=== PATIENT | male | born 1990 | race Caucasian/White ===

== ENCOUNTER 2017-06-08 09:09 | Emergency (ER) | payer BC ==
[~2017-06-08] VITALS: Ht 170.2 cm; Wt 80.8 kg
[2017-06-08 09:12] VITALS: BP 151/76; PULSE 68; RESP 16; TEMP 98.3; O2SAT 96
--- NOTE | 2017-06-08 09:45 | PD ---
HPI Chief Complaint: Neuro Symptoms/ Deficits Time Seen by Provider: 09:17 Travel History International Travel<30 days: No Contact w/Intl Traveler<30days: No Traveled to known affect area: No History of Present Illness HPI This 27-year-old male is concerned that he might have temporal lobe epilepsy. 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 It was quite severe and he was in a coma for 3 days. He has been well since then. Recently he has been having spells where he has a sense of dj vu and then has memory loss for several minutes. He seems to feel these coming on. It usually happens when he is going into the shower or when he is thinking about school. He is currently a student at [employer]. There is no loss of consciousness or no motor symptoms. He does not drink alcohol or smoke or do drugs. He does take some supplements for body building. He does not suffer from headaches. PFSH Past Medical History Medical History: Denies Significant Hx Past Surgical History Surgical History: No Previous Surgery Social History Alcohol Use: No Tobacco Use: No Substance Use: No Allergies-Medications (Allergen,Severity, Reaction): Coded Allergies: No Known Allergies (Unverified , 06/08/17) Reported Meds & Prescriptions Reported Meds & Active Scripts Active No Active Prescriptions or Reported Medications Review of Systems General / Constitutional: No: Fever, Chills Eyes: No: Diploplia, Blurred Vision HENT: No: Headaches, Vertigo Cardiovascular: No: Chest Pain or Discomfort, Palpitations Respiratory: No: Cough, Shortness of Breath Gastrointestinal: No: Nausea, Vomiting Genitourinary: No: Urgency, Frequency Musculoskeletal: No: Myalgias, Arthralgias Skin: No Rash, No Itching Neurologic: Positive: Change in Mentation, No: Weakness, Syncope Endocrine: No: Heat Intolerance, Cold Intolerance Hematologic/Lymphatic: No: Easy Bruising Physical Exam Narrative GENERAL: Well-developed male SKIN: Focused skin assessment warm/dry. HEAD: Atraumatic. Normocephalic. EYES: Pupils equal and round. No scleral icterus. No injection or drainage. ENT: No nasal bleeding or discharge. Mucous membranes pink and moist. NECK: Trachea midline. No JVD. CARDIOVASCULAR: Regular rate and rhythm. No murmur appreciated. RESPIRATORY: No accessory muscle use. Clear to auscultation. Breath sounds equal bilaterally. GASTROINTESTINAL: Abdomen soft, non-tender, nondistended. Hepatic and splenic margins not palpable. MUSCULOSKELETAL: No obvious deformities. No clubbing. No cyanosis. No edema. NEUROLOGICAL: Awake and alert. No obvious cranial nerve deficits. Motor grossly within normal limits. Normal speech. PSYCHIATRIC: Appropriate mood and affect; insight and judgment normal. Data Data Last Documented VS Vital Signs Date Time Temp Pulse Resp B/P (MAP) Pulse Ox O2 Delivery O2 Flow Rate FiO2 06/08/17 09:12 98.3 68 16 151/76 (101) 96 MDM Medical Decision Making Medical Screen Exam Complete: Yes Emergency Medical Condition: Yes Medical Record Reviewed: Yes Differential Diagnosis Differential includes temporal lobe epilepsy, atypical seizure, anxiety Narrative Course Symptoms could be secondary to temporal lobe epilepsy. I feel the patient would benefit from evaluation by an neurologist. He has actually been calling trying to get an appointment but has not been successful. I will refer him to the neurologist on-call for us. I don't think a CT scan would be beneficial at this time. He does not have any neurologic findings Diagnosis Primary Impression: Transient neurological symptoms Referrals: Kole Malhotra MD Scripts No Active Prescriptions or Reported Meds Disposition: DISCHARGE HOME Condition: Stable Jean Bennett MD Jun 08, 2017 09:45
== END 2017-06-08 10:10 | disposition home or self-care (01) ==
LOC: PHED 09:09
DX: R41.3 Other amnesia (principal); Z86.61 Personal history of infections of the central nervous system
CPT/HCPCS: 99281